=== PATIENT | male | born 1990 | race Caucasian/White ===

== ENCOUNTER 2018-01-14 23:05 | Inpatient (IN) | payer SELFPAY ==
[~2018-01-14] VITALS: Ht 175.3 cm; Wt 99.0 kg
[2018-01-14 23:27] VITALS: BP 121/72; PULSE 117; RESP 18; TEMP 101.7; O2SAT 97
[2018-01-14] MEDS ORDERED: KETOROLAC TROMETHAMINE 30 MG/ML (IVP) VIAL IV PUSH ONE (23:45)
[2018-01-14] MEDS ORDERED: ACETAMINOPHEN 325 MG TAB PO ONE (23:45)
[2018-01-14] MEDS ORDERED: SODIUM CHLOR 0.9% 1000 ML INJ 1,000 ML IV ONE ×2 (23:45)
[2018-01-14] MEDS ORDERED: ONDANSETRON ODT 4 MG TAB PO ONE (23:45)
--- NOTE | 2018-01-14 23:48 | PD ---
HPI Chief Complaint: GI Complaint Time Seen by Provider: 23:34 Travel History International Travel<30 days: No Contact w/Intl Traveler<30days: No Traveled to known affect area: No History of Present Illness HPI The patient is a 27-year-old male who presents to the emergency department for a one-week of since one episode of diarrhea. He does complain of a dry nonproductive cough, generalized weakness, and some nondescript myalgias. He denies any sick contacts at home. The patient was seen in urgent care earlier [facility] where he was given Zofran, however, persisted to have nausea/vomiting and was referred to the emergency department. He denies any recent international travel. The patient does not have a local primary physician. He does note nausea, vomiting, one episode of diarrhea, but denies any specific abdominal pain. He denies any dysuria. He denies any posterior neck pain. He denies any ear pain or sore throat. Symptoms are moderate. PFSH Past Medical History Medical History: Denies Significant Hx Past Surgical History Narrative Surgical 1 wisdom tooth removed Social History Tobacco Use: No Allergies-Medications (Allergen,Severity, Reaction): Coded Allergies: No Known Allergies (Unverified , 01/14/18) Review of Systems Except as stated in HPI: all other systems reviewed are Neg General / Constitutional: Positive: Fever HENT: No: Sore Throat, Neck Stiffness, Neck Pain Cardiovascular: No: Chest Pain or Discomfort Respiratory: Positive: Cough, No: Shortness of Breath Gastrointestinal: Positive: Nausea, Vomiting, Diarrhea, Abdominal Pain ( Secondary to vomit) Genitourinary: No: Dysuria Musculoskeletal: Positive: Myalgias, Weakness Skin: No Rash Neurologic: Positive: Weakness Physical Exam Narrative GENERAL: Awake, alert, 27-year-old white male who appears his stated age and is in no acute respiratory distress. SKIN: Focused skin assessment warm/dry. HEAD: Atraumatic. Normocephalic. EYES: Pupils equal and round. No scleral icterus. No injection or drainage. ENT: No nasal bleeding or discharge. Dry mucous membranes. NECK: Trachea midline. No JVD. No meningeal signs. CARDIOVASCULAR: Regular, tachycardic with a heart rate of 115. RESPIRATORY: No accessory muscle use. Clear to auscultation. Breath sounds equal bilaterally. GASTROINTESTINAL: Abdomen soft, non-tender, nondistended. Negative Reyes's. Negative McBurney's. Back: No CVA tenderness. MUSCULOSKELETAL: No obvious deformities. No clubbing. No cyanosis. No edema. NEUROLOGICAL: Awake and alert. No obvious cranial nerve deficits. Motor grossly within normal limits. Normal speech. Nonfocal. PSYCHIATRIC: Appropriate mood and affect; insight and judgment normal. Data Data Last Documented VS Vital Signs Date Time Temp Pulse Resp B/P (MAP) Pulse Ox O2 Delivery O2 Flow Rate FiO2 01/15/18 01:48 99.0 94 18 132/75 (94) 98 Room Air Orders Orders Sepsis Workup Initiated (01/14/18 ) Complete Blood Count With Diff (01/14/18 23:40) Comprehensive Metabolic Panel (01/14/18 23:40) Lactic Acid Sepsis Protocol (01/14/18 23:40) Lipase (01/14/18 23:40) Urinalysis - C+S If Indicated (01/14/18 23:40) Influenzae A/B Antigen (01/14/18 23:40) Blood Culture (01/14/18 23:40) Chest, Single Ap (01/14/18 23:40) Blood Glucose (01/14/18 23:40) Ecg Monitoring (01/14/18 23:40) Iv Access Insert/Monitor (01/14/18 23:40) Oximetry (01/14/18 23:40) Oxygen Administration (01/14/18 23:40) Acetaminophen (Tylenol) (01/14/18 23:45) Sodium Chlor 0.9% 1000 Ml Inj (Ns 1000 M (01/14/18 23:45) Sodium Chlor 0.9% 1000 Ml Inj (Ns 1000 M (01/14/18 23:45) Ondansetron Odt (Zofran Odt) (01/14/18 23:45) Ketorolac Inj (Toradol Inj) (01/14/18 23:45) Iohexol 350 Inj (Omnipaque 350 Inj) (01/15/18 01:08) Ct Abd/Pel W Iv Contrast(Rout) (01/15/18 00:01) Monoscreen (01/15/18 01:34) Hepatitis Profile (01/15/18 01:34) Admit Order (Ed Use Only) (01/15/18 01:51) Admit To Inpatient (01/15/18 ) Vital Signs (Adult) Q4H (01/15/18 01:51) Activity Oob With Assistance (01/15/18 01:51) Diet Regular Basic (01/15/18 Breakfast) Sodium Chlor 0.9% 1000 Ml Inj (Ns 1000 M (01/15/18 01:51) Sodium Chloride 0.9% Flush (Ns Flush) (01/15/18 02:00) Sodium Chloride 0.9% Flush (Ns Flush) (01/15/18 09:00) Ondansetron Inj (Zofran Inj) (01/15/18 02:00) Comprehensive Metabolic Panel (01/16/18 06:00) Complete Blood Count With Diff (01/16/18 06:00) Scd Bilateral/Knee High BETTIE.BID (01/15/18 01:51) Naloxone Inj (Narcan Inj) (01/15/18 02:00) Magnesium Hydroxide Liq (Milk Of Magnesi (01/15/18 02:00) Sennosides (Senokot) (01/15/18 02:00) Bisacodyl Supp (Dulcolax Supp) (01/15/18 02:00) Lactulose Liq (Lactulose Liq) (01/15/18 02:00) Inpatient Certification (01/15/18 ) Labs Laboratory Tests Test 01/15/18 00:05 01/15/18 01:23 01/15/18 01:45 White Blood Count 5.1 TH/MM3 Red Blood Count 4.87 MIL/MM3 Hemoglobin 14.4 GM/DL Hematocrit 41.6 % Mean Corpuscular Volume 85.3 FL Mean Corpuscular Hemoglobin 29.5 PG Mean Corpuscular Hemoglobin Concent 34.5 % Red Cell Distribution Width 12.4 % Platelet Count 106 TH/MM3 Mean Platelet Volume 9.4 FL CBC Comment AUTO DIFF Differential Total Cells Counted 100 Neutrophils % (Manual) 59 % Band Neutrophils % 19 % Lymphocytes % 20 % Monocytes % 2 % Neutrophils # (Manual) 4.0 TH/MM3 Differential Comment FINAL DIFF MANUAL Platelet Estimate LOW Platelet Morphology Comment NORMAL Red Cell Morphology Comment NORMAL Blood Urea Nitrogen 11 MG/DL Creatinine 1.00 MG/DL Random Glucose 107 MG/DL Total Protein 7.0 GM/DL Albumin 3.3 GM/DL Calcium Level 8.7 MG/DL Alkaline Phosphatase 111 U/L Aspartate Amino Transf (AST/SGOT) 396 U/L Alanine Aminotransferase (ALT/SGPT) 429 U/L Total Bilirubin 1.6 MG/DL Sodium Level 136 MEQ/L Potassium Level 3.5 MEQ/L Chloride Level 101 MEQ/L Carbon Dioxide Level 26.5 MEQ/L Anion Gap 9 MEQ/L Estimat Glomerular Filtration Rate 91 ML/MIN Lactic Acid Level 1.5 mmol/L Lipase 203 U/L Urine Color YELLOW Urine Turbidity CLEAR Urine pH 6.0 Urine Specific [place] LESS/EQUAL 1.005 Urine Protein NEG mg/dL Urine Glucose (UA) NEG mg/dL Urine Ketones 15 mg/dL Urine Occult Blood NEG Urine Nitrite NEG Urine Bilirubin NEG Urine Urobilinogen 2.0 MG/DL Urine Leukocyte Esterase NEG Urine RBC 0-2 /hpf Urine WBC 0-2 /hpf Urine Squamous Epithelial Cells 0-5 /hpf Urine Bacteria NONE /hpf Microscopic Urinalysis Comment CULT NOT INDICATED MDM Medical Decision Making Medical Screen Exam Complete: Yes Emergency Medical Condition: Yes Medical Record Reviewed: Yes Interpretation(s) Date/Time Source Procedure Growth Status 01/15/18 00:00 Blood Peripheral Aerobic Blood Culture Pending Received 01/15/18 00:00 Blood Peripheral Anaerobic Blood Culture Pending Received 01/15/18 00:00 Blood Peripheral Aerobic Blood Culture Pending Received 01/15/18 00:00 Blood Peripheral Anaerobic Blood Culture Pending Received 01/15/18 00:05 Nasal Aspirate Influenza Types A,B Antigen (CHIVO) - Final NEGATIVE FOR FLU A AND B ANTIGEN.... Complete Laboratory Tests Test 01/15/18 00:05 01/15/18 01:23 White Blood Count 5.1 TH/MM3 Red Blood Count 4.87 MIL/MM3 Hemoglobin 14.4 GM/DL Hematocrit 41.6 % Mean Corpuscular Volume 85.3 FL Mean Corpuscular Hemoglobin 29.5 PG Mean Corpuscular Hemoglobin Concent 34.5 % Red Cell Distribution Width 12.4 % Platelet Count 106 TH/MM3 Mean Platelet Volume 9.4 FL CBC Comment AUTO DIFF Differential Total Cells Counted 100 Neutrophils % (Manual) 59 % Band Neutrophils % 19 % Lymphocytes % 20 % Monocytes % 2 % Neutrophils # (Manual) 4.0 TH/MM3 Differential Comment FINAL DIFF MANUAL Platelet Estimate LOW Platelet Morphology Comment NORMAL Red Cell Morphology Comment NORMAL Blood Urea Nitrogen 11 MG/DL Creatinine 1.00 MG/DL Random Glucose 107 MG/DL Total Protein 7.0 GM/DL Albumin 3.3 GM/DL Calcium Level 8.7 MG/DL Alkaline Phosphatase 111 U/L Aspartate Amino Transf (AST/SGOT) 396 U/L Alanine Aminotransferase (ALT/SGPT) 429 U/L Total Bilirubin 1.6 MG/DL Sodium Level 136 MEQ/L Potassium Level 3.5 MEQ/L Chloride Level 101 MEQ/L Carbon Dioxide Level 26.5 MEQ/L Anion Gap 9 MEQ/L Estimat Glomerular Filtration Rate 91 ML/MIN Lactic Acid Level 1.5 mmol/L Lipase 203 U/L Urine Color YELLOW Urine Turbidity CLEAR Urine pH 6.0 Urine Specific [place] LESS/EQUAL 1.005 Urine Protein NEG mg/dL Urine Glucose (UA) NEG mg/dL Urine Ketones 15 mg/dL Urine Occult Blood NEG Urine Nitrite NEG Urine Bilirubin NEG Urine Urobilinogen 2.0 MG/DL Urine Leukocyte Esterase NEG Urine RBC 0-2 /hpf Urine WBC 0-2 /hpf Urine Squamous Epithelial Cells 0-5 /hpf Urine Bacteria NONE /hpf Microscopic Urinalysis Comment CULT NOT INDICATED CT of the abdomen and pelvis reveals unremarkable bowel gas pattern and normal appendix. Moderate hepatic steatosis. Last Impressions Chest X-Ray 01/14/18 2340 Signed Impressions: Service Date/Time: Sunday, January 14, 2018 23:43 - CONCLUSION: No acute disease. There is no evidence of pneumonia. Fredrick Hunt MD Differential Diagnosis Differential diagnosis includes influenza, viral syndrome, pneumonia, pyelonephritis, atypical appendicitis, atypical cholecystitis, gastroenteritis, enteritis, colitis. Narrative Course IV was established, labs are drawn and sent, and the patient was placed on cardiac telemetry monitoring and continuous pulse oximetry monitoring. The patient was administered Tylenol, Toradol, Zofran, and 2 L of IV fluids. UA was sent to lab. Influenza screen was sent to lab. Chest x-ray was obtained. CT of the abdomen and pelvis with IV contrast was ordered. Chest x-ray was negative, no evidence of pneumonia. CT of the abdomen and pelvis reveals unremarkable bowel gas pattern and normal appendix, moderate hepatic steatosis. White count is unremarkable, however, the patient does have bandemia 19%. The patient's LFTs are elevated in the 300s and 400s with mildly elevated bilirubin, possibly could be secondary to viral hepatitis. Therefore, mono screen and hepatitis profile were sent to lab. As the patient does have bandemia, tachycardia, and elevated LFTs, he will be admitted to the hospital for further evaluation and observation. The on-call medical service was paged for admission. Sepsis Criteria SIRS Criteria (2 or more): Temp > 100.9 or < 96.8, Heart rate over 90, WBC > 46545, < 4000 or > 10% bands Criteria Outcome: Meets SIRS criteria Physician Communication Physician Communication The on-call medical service was paged for admission. I discussed the patient with Dr. Crook who agrees with admission. Diagnosis Primary Impression: SIRS (systemic inflammatory response syndrome) Additional Impressions: Hepatitis Bandemia Condition: Stable Ferdinand Richter MD January 14, 2018 23:48
--- NOTE | 2018-01-15 00:02 | RADRPT ---
EXAM DATE/TIME: 01/14/2018 23:43 [facility] COMPARISON: No previous studies available for comparison. INDICATIONS : Fever, cough. MEDICAL HISTORY : None. SURGICAL HISTORY : None. ENCOUNTER: Initial ACUITY: 1 week PAIN SCORE: 0/10 LOCATION: Bilateral chest FINDINGS: A single view of the chest demonstrates the lungs to be symmetrically aerated without evidence of mas s, infiltrate or effusion. The cardiomediastinal contours are unremarkable. Osseous structures are intact. CONCLUSION: No acute disease. There is no evidence of pneumonia. Fredrick Hunt MD on January 15, 2018 at 0:00 Board Certified Radiologist. This report was verified electronically.
[2018-01-15 00:23] VITALS: O2SAT 98
[2018-01-15 00:23] LABS: HEMATOCRIT 41.6 % (39.0-51.0); HEMOGLOBIN 14.4 GM/DL (13.0-17.0); MEAN CELL VOLUME 85.3 FL (80.0-100.0); MEAN CORPUSCULAR HEMOGLOBIN 29.5 PG (27.0-34.0); MEAN CORPUSCULAR HGB CONC 34.5 % (32.0-36.0); MEAN PLATELET VOLUME 9.4 FL (7.0-11.0); PLATELET COUNT 106 TH/MM3 (150-450); RED BLOOD COUNT 4.87 MIL/MM3 (4.50-5.90); RED CELL DISTRIBUTION WIDTH 12.4 % (11.6-17.2); WHITE BLOOD COUNT 5.1 TH/MM3 (4.0-11.0)
[2018-01-15 00:34] LABS: CHLORIDE 101 MEQ/L (98-107); SODIUM (NA) 136 MEQ/L (136-145)
[2018-01-15 00:38] LABS: ALBUMIN 3.3 GM/DL (3.4-5.0); BICARBONATE 26.5 MEQ/L (21.0-32.0); CALCIUM 8.7 MG/DL (8.5-10.1); GLUCOSE,RANDOM 107 MG/DL (74-106)
[2018-01-15 00:39] LABS: BLOOD UREA NITROGEN 11 MG/DL (7-18)
[2018-01-15 00:41] LABS: ALT (GPT) 429 U/L (12-78); AST (GOT) 396 U/L (15-37); BANDS 19 % (0-6); GLOMERULAR FILTRATION RATE 91 ML/MIN (>89); LYMPHOCYTES 20 % (9-44); MONOCYTES 2 % (0-8); POLYS (SEG NEUTROPHILS) 59 % (16-70)
[2018-01-15 00:43] LABS: TOTAL BILIRUBIN ADULT 1.6 MG/DL (0.2-1.0)
[2018-01-15 00:44] LABS: ALKALINE PHOSPHATASE 111 U/L (45-117)
[2018-01-15] MEDS ORDERED: IOHEXOL 350 MG/ML 10 ML VIAL (for RAD DIAG) IVCONTRAST ONE (01:08)
[2018-01-15 01:30] LABS: BILIRUBIN, URINE NEG (NEG); BLOOD, URINE NEG (NEG); GLUCOSE,URINE NEG (NEG); KETONE, URINE 15 mg/dL (NEG); NITRITE,URINE NEG (NEG); URINE COLOR YELLOW (YELLW/STRAW); URINE LEUKOCYTE ESTERASE NEG (NEG)
[2018-01-15 01:34] LABS: RBC, URINE 0-2 /hpf (0-3); SQUAMOUS EPITHELIAL CELL URINE 0-5 /hpf (0-5); WBC, URINE 0-2 /hpf (0-5)
--- NOTE | 2018-01-15 01:34 | RADRPT ---
EXAM DATE/TIME: 01/15/2018 00:44 [facility] COMPARISON: CHEST SINGLE AP, January 14, 2018, 23:43. INDICATIONS : Bilateral lower quadrant pain. Nausea. Vomiting. IV CONTRAST: 100 cc Omnipaque 350 (iohexol) IV ORAL CONTRAST: No oral contrast ingested. RADIATION DOSE: 18.14 CTDIvol (mGy) MEDICAL HISTORY : None SURGICAL HISTORY : None. ENCOUNTER: Initial ACUITY: 4 - 6 days PAIN SCALE: 5/10 LOCATION: Bilateral lower quadrant TECHNIQUE: Volumetric scanning of the abdomen and pelvis was performed. Using automated exposure control and ad justment of the mA and/or kV according to patient size, radiation dose was kept as low as reasonably achievable to obtain optimal diagnostic quality images. DICOM format image data is available electro nically for review and comparison. FINDINGS: LOWER LUNGS: The visualized lower lungs are clear. LIVER: Homogeneous density without lesion. There is no dilation of the biliary tree. No calcified gallston es. There is diffuse moderate hepatic steatosis. The gallbladder is unremarkable in appearance. SPLEEN: Normal size without lesion. PANCREAS: Within normal limits. KIDNEYS: Normal in size and shape. There is no mass, stone or hydronephrosis. ADRENAL GLANDS: Within normal limits. VASCULAR: There is no aortic aneurysm. BOWEL/MESENTERY: No oral contrast was given limiting sensitivity. The stomach, small bowel, and colon demonstrate no a cute abnormality. There is a normal appendix. There is no free intraperitoneal air or fluid. ABDOMINAL WALL: Within normal limits. RETROPERITONEUM: There is no lymphadenopathy. BLADDER: No wall thickening or mass. REPRODUCTIVE: Within normal limits. INGUINAL: There is no lymphadenopathy or hernia. MUSCULOSKELETAL: Within normal limits for patient age. CONCLUSION: 1. Unremarkable bowel gas pattern and normal appendix. 2. Moderate hepatic steatosis. Fredrick Hunt MD on January 15, 2018 at 1:30 Board Certified Radiologist. This report was verified electronically.
[2018-01-15 01:48] VITALS: BP 132/75; PULSE 94; RESP 18; TEMP 99; O2SAT 98
[2018-01-15] MEDS: SODIUM CHLOR 0.9% 1000 ML INJ 1,000 ML IV SCH ×2 (01:51→11:51)
[2018-01-15] MEDS ORDERED: NALOXONE HCL 0.4 MG/ML AMP IV PUSH PRN (02:00)
[2018-01-15] MEDS ORDERED: ONDANSETRON ODT 4 MG TAB PO PRN (02:00)
[2018-01-15] MEDS ORDERED: SODIUM CHLORIDE 0.9% FLUSH 10 ML FLUSH IV FLUSH PRN (02:00)
[2018-01-15] MEDS ORDERED: LACTULOSE SYRUP 20 GM/30 ML CUP PO PRN (02:00)
[2018-01-15] MEDS ORDERED: MAGNESIUM HYDROXIDE SUSP 30 ML CUP PO PRN (02:00)
[2018-01-15] MEDS ORDERED: SENNOSIDES 8.6 MG TAB PO PRN (02:00)
[2018-01-15] MEDS ORDERED: BISACODYL 10 MG SUPP RECTAL PRN (02:00)
[2018-01-15 02:15] VITALS: BP 126/58; TEMP 98.9
[2018-01-15] MEDS ORDERED: PROCHLORPERAZINE INJ 10 MG/2 ML VIAL IV PUSH ONE (02:15)
[2018-01-15 02:45] VITALS: BP 114/59; PULSE 91; RESP 20; TEMP 99.4; O2SAT 95
[2018-01-15] MEDS ORDERED: PROMETHAZINE INJ 25 MG/ML VIAL IM ONE (07:00)
[2018-01-15 08:00] VITALS: BP 133/73; PULSE 90; RESP 21; TEMP 98.2; O2SAT 98
[2018-01-15] MEDS ORDERED: SODIUM CHLORIDE 0.9% FLUSH 10 ML FLUSH IV FLUSH SCH (09:00)
--- NOTE | 2018-01-15 09:01 | HHI.HP ---
[facility] Service [facility] Primary Care Physician No Primary Care Physician Admission Diagnosis SIRS, hepatitis, bandemia, febrile illness Diagnoses: (1) Sepsis Diagnosis: Principal (2) Hepatitis Diagnosis: Principal (3) Bandemia Diagnosis: Principal Chief Complaint: Nausea, vomiting Travel History International Travel<30 Days: No Contact w/Intl Traveler <30 Da: No Traveled to Known Affected Are: No Sepsis Criteria SIRS Criteria (2 or more): Temp > 100.9 or < 96.8, Heart rate over 90, WBC > 13499, < 4000 or > 10% bands Sepsis Criteria (SIRS+source): Infect source susp/known History of Present Illness 27-year-old male with no chronic medical illnesses who presented the hospital at the request of urgent care because of intractable nausea vomiting. Patient states that for at least one week now he has been experiencing nausea and vomiting and one episode of diarrhea. Patient denies any abdominal pain, hematemesis, hematochezia, melena. Patient indicates that he is not ate any type of seafood, shellfish, uncooked chicken, pork, beef. He does not know of any type of food or condition that preempted his symptoms. Patient works in IT , patient did go to an urgent care center yesterday and because he had intractable nausea and vomiting he was notified to go to the emergency department for evaluation. Patient had workup done which did find elevated liver enzymes, elevated bilirubin, patient was febrile when he presented the hospital. Patient denies any history of hepatitis, denies any alcohol abuse, IV drug use, he is only sexually active with his . At the time of seeing the patient he denies any abdominal pain. He has not had any recurrent nausea and vomiting since being hospitalized. He is doing well and asking when he can go home. Review of Systems Gastrointestinal: COMPLAINS OF: Diarrhea, Nausea, Vomiting Except as stated in HPI: all other systems reviewed are Neg Past Family Social History Past Medical History No chronic medical illnesses Past Surgical History [place] tooth extraction Reported Medications No home medications Allergies: Coded Allergies: No Known Allergies (Unverified , 01/14/18) Family History Family history reviewed and significant for diabetes Social History Patient denies any tobacco or illicit drugs. He states that he drinks alcohol approximately once a week. And he only drinks 1 beer at that time. Physical Exam Vital Signs Vital Signs Date Time Temp Pulse Resp B/P (MAP) Pulse Ox O2 Delivery O2 Flow Rate FiO2 01/15/18 08:00 98.2 90 21 133/73 (93) 98 01/15/18 02:45 99.4 91 20 114/59 (77) 95 01/15/18 02:15 98.9 92 16 126/58 (80) 100 01/15/18 01:48 99.0 94 18 132/75 (94) 98 Room Air 01/15/18 00:23 98 Room Air 01/15/18 00:23 98 Room Air 01/14/18 23:27 101.7 117 18 121/72 (88) 97 Physical Exam GENERAL: Well-developed, well-nourished, in no acute distress. alert and orientated HEENT: Head is normocephalic without any lesions or masses noted. Facial features are symmetric. Eyes: Pupils equal round reactive to light. Extraocular muscles are intact. Conjunctivae were clear. Oropharyngeal: Pharynx without any erythema edema. Tongue is midline without deviation. Buccal mucosa is moist without any masses or lesions NECK: Supple without any masses. Trachea midline no deviation. No JVD, no bruits are appreciated CARDIAC: Regular rhythm, regular rate. S1/S2 are heard. No murmurs gallops or rubs. LUNGS: Clear to auscultation bilaterally. No wheeze, rhonchi or rales. No use of accessory muscles on inspiration or expiration. ABDOMEN: Soft, nontender. Nondistended. Bowel sounds heard in all 4 quadrants. No organomegaly or masses. Negative rebound, negative guarding EXTREMITIES: No edema, pulses are equal bilaterally. No cyanosis or clubbing NEUROLOGY: Mood and affect appear appropriate. Cranial nerves II through XII grossly intact. Muscle strength 5/5 in upper and lower extremities bilaterally. Deep tendon reflexes are 2+ in upper and lower extremities bilaterally. Laboratory Laboratory Tests Test 01/15/18 00:05 01/15/18 01:23 01/15/18 01:45 01/15/18 01:53 White Blood Count 5.1 Red Blood Count 4.87 Hemoglobin 14.4 Hematocrit 41.6 Mean Corpuscular Volume 85.3 Mean Corpuscular Hemoglobin 29.5 Mean Corpuscular Hemoglobin Concent 34.5 Red Cell Distribution Width 12.4 Platelet Count 106 Mean Platelet Volume 9.4 CBC Comment AUTO DIFF Differential Total Cells Counted 100 Neutrophils % (Manual) 59 Band Neutrophils % 19 Lymphocytes % 20 Monocytes % 2 Neutrophils # (Manual) 4.0 Differential Comment FINAL DIFF MANUAL Platelet Estimate LOW Platelet Morphology Comment NORMAL Red Cell Morphology Comment NORMAL Blood Urea Nitrogen 11 Creatinine 1.00 Random Glucose 107 Total Protein 7.0 Albumin 3.3 Calcium Level 8.7 Alkaline Phosphatase 111 Aspartate Amino Transf (AST/SGOT) 396 Alanine Aminotransferase (ALT/SGPT) 429 Total Bilirubin 1.6 Sodium Level 136 Potassium Level 3.5 Chloride Level 101 Carbon Dioxide Level 26.5 Anion Gap 9 Estimat Glomerular Filtration Rate 91 Lactic Acid Level 1.5 Lipase 203 Ethyl Alcohol Level LESS THAN 3 Urine Color YELLOW Urine Turbidity CLEAR Urine pH 6.0 Urine Specific [place] LESS/EQUAL 1.005 Urine Protein NEG Urine Glucose (UA) NEG Urine Ketones 15 Urine Occult Blood NEG Urine Nitrite NEG Urine Bilirubin NEG Urine Urobilinogen 2.0 Urine Leukocyte Esterase NEG Urine RBC 0-2 Urine WBC 0-2 Urine Squamous Epithelial Cells 0-5 Urine Bacteria NONE Microscopic Urinalysis Comment CULT NOT INDICATED Date/Time Source Procedure Growth Status 01/15/18 00:00 Blood Peripheral Aerobic Blood Culture Pending Received 01/15/18 00:00 Blood Peripheral Anaerobic Blood Culture Pending Received 01/15/18 00:05 Nasal Aspirate Influenza Types A,B Antigen (CHIVO) - Final NEGATIVE FOR FLU A AND B ANTIGEN.... Complete Result Diagram: 01/15/18 0005 01/15/18 0005 Imaging Last Impressions Abdomen/Pelvis CT 01/15/18 0001 Signed Impressions: Service Date/Time: Monday, January 15, 2018 00:44 - CONCLUSION: 1. Unremarkable bowel gas pattern and normal appendix. 2. Moderate hepatic steatosis. Fredrick Hunt MD Chest X-Ray 01/14/18 7840 Signed Impressions: Service Date/Time: Sunday, January 14, 2018 23:43 - CONCLUSION: No acute disease. There is no evidence of pneumonia. Fredrick Hunt MD Septic Shock Reassessment Septic shock perfusion: reassessment completed Caprini VTE Risk Assessment Caprini VTE Risk Assessment: No/Low Risk (score <= 1) Caprini Risk Assessment Model Point Value = 1 Point Value = 2 Point Value = 3 Point Value = 5 Age 41-60 Minor surgery BMI > 25 kg/m2 Swollen legs Varicose veins or History of unexplained or recurrent spontaneous Oral contraceptives or hormone replacement Sepsis (< 1 month) Serious lung disease, including pneumonia (< 1 month) Abnormal pulmonary function Acute myocardial infarction Congestive heart failure (< 1 month) History of inflammatory bowel disease Medical patient at bed rest Age 61-74 Arthroscopic surgery Major open surgery (> 45 min) Laparoscopic surgery (> 45 min) Malignancy Confined to bed (> 72 hours) Immobilizing plaster cast Central venous access Age >= 75 History of VTE Family history of VTE Factor V Leiden Prothrombin [id number] Lupus anticoagulant Anticardiolipin antibodies Elevated serum homocysteine Heparin-induced thrombocytopenia Other congenital or acquired thrombophilia Stroke (< 1 month) Elective arthroplasty Hip, pelvis, or leg fracture Acute spinal cord injury (< 1 month) Prophylaxis Regimen Total Risk Factor Score Risk Level Prophylaxis Regimen 0-1 Low Early ambulation 2 Moderate Order ONE of the following: *Sequential Compression Device (SCD) *Heparin 5000 units SQ BID 3-4 Higher Order ONE of the following medications: *Heparin 5000 units SQ TID *Enoxaparin/Lovenox 40 mg SQ daily (WT < 150 kg, CrCl > 30 mL/min) *Enoxaparin/Lovenox 30 mg SQ daily (WT < 150 kg, CrCl > 10-29 mL/min) *Enoxaparin/Lovenox 30 mg SQ BID (WT < 150 kg, CrCl > 30 mL/min) AND/OR *Sequential Compression Device (SCD) 5 or more Highest Order ONE of the following medications: *Heparin 5000 units SQ TID (Preferred with Epidurals) *Enoxaparin/Lovenox 40 mg SQ daily (WT < 150 kg, CrCl > 30 mL/min) *Enoxaparin/Lovenox 30 mg SQ daily (WT < 150 kg, CrCl > 10-29 mL/min) *Enoxaparin/Lovenox 30 mg SQ BID (WT < 150 kg, CrCl > 30 mL/min) AND *Sequential Compression Device (SCD) Assessment and Plan Assessment and Plan Sepsis -Patient presented with febrile illness, tachycardia, bandemia, signs of hepatitis -Influenza testing was negative, blood cultures are pending -Laboratory studies indicating hepatitis with CT scan showing moderate hepatic steatosis Hepatitis, secondary to mononucleosis -CT scan results as above -Continue to trend liver enzymes -Viral hepatitis panel was negative -Mononucleosis testing was positive -Continue IV fluids -Zofran as needed for nausea vomiting Thrombocytopenia -Likely secondary to hepatitis from mononucleosis -Monitor platelet count Bandemia -Continue monitor CBC DVT prevention -Low risk, early ambulation -Sequential compression devices Physician Certification 2 Midnight Certification Type: Admission for Inpatient Services Order for Inpatient Services The services are ordered in accordance with Medicare regulations or non- Medicare payer requirements, as applicable. In the case of services not specified as inpatient-only, they are appropriately provided as inpatient services in accordance with the 2-midnight benchmark. Estimated LOS (days): 2 days is the estimated time the patient will need to remain in the hospital, assuming treatment plan goals are met and no additional complications. Post-Hospital Plan: Not yet determined Jacques Biswas January 15, 2018 09:01
[2018-01-15 12:00] VITALS: BP 126/66; PULSE 99; RESP 19; TEMP 102; O2SAT 98
[2018-01-15 12:34] LABS: MONOSCREEN POS (NEG)
[2018-01-15 12:36] LABS: ACETAMINOPHEN LESS THAN 2.0 MCG/ML (10.0-30.0)
[2018-01-15] MEDS ORDERED: IBUPROFEN 600 MG TAB PO PRN (12:45)
[2018-01-15 13:25] LABS: HEMATOCRIT 38.2 % (39.0-51.0); HEMOGLOBIN 13.2 GM/DL (13.0-17.0); MEAN CELL VOLUME 85.5 FL (80.0-100.0); MEAN CORPUSCULAR HEMOGLOBIN 29.5 PG (27.0-34.0); MEAN CORPUSCULAR HGB CONC 34.5 % (32.0-36.0); MEAN PLATELET VOLUME 9.2 FL (7.0-11.0); PLATELET COUNT 105 TH/MM3 (150-450); RED BLOOD COUNT 4.47 MIL/MM3 (4.50-5.90); RED CELL DISTRIBUTION WIDTH 12.8 % (11.6-17.2)
[2018-01-15 13:30] LABS: CHLORIDE 108 MEQ/L (98-107); SODIUM (NA) 139 MEQ/L (136-145)
[2018-01-15 13:35] LABS: ALBUMIN 2.9 GM/DL (3.4-5.0); BICARBONATE 23.9 MEQ/L (21.0-32.0); BLOOD UREA NITROGEN 8 MG/DL (7-18); GLUCOSE,RANDOM 89 MG/DL (74-106)
[2018-01-15 13:38] LABS: ALT (GPT) 440 U/L (12-78); AST (GOT) 361 U/L (15-37); CREATININE 0.75 MG/DL (0.60-1.30); GLOMERULAR FILTRATION RATE 127 ML/MIN (>89)
[2018-01-15 13:39] LABS: TOTAL BILIRUBIN ADULT 1.1 MG/DL (0.2-1.0); TOTAL PROTEIN 6.2 GM/DL (6.4-8.2)
[2018-01-15 13:41] LABS: ALKALINE PHOSPHATASE 89 U/L (45-117)
[2018-01-15 14:30] LABS: ATYPICAL LYMPHOCYTES 16 % (0-0); BANDS 12 % (0-6); LYMPHOCYTES 37 % (9-44); MONOCYTES 9 % (0-8); NEUTROPHIL # MANUAL DIFF 1.9 TH/MM3 (1.8-7.7); POLYS (SEG NEUTROPHILS) 25 % (16-70)
== END 2018-01-15 15:55 | disposition left against medical advice (07) | DRG 872 ==
LOC: PHED 23:05 → PHEDA 01-15 01:53 → PH3A 01-15 02:21
PROVIDERS: ADMIT Hospitalist; ATTEND Hospitalist
DX: A41.9 Sepsis, unspecified organism (principal); D69.6 Thrombocytopenia, unspecified; K76.0 Fatty (change of) liver, not elsewhere classified; B27.90 Infectious mononucleosis, unspecified without complication; K75.9 Inflammatory liver disease, unspecified; Z83.3 Family history of diabetes mellitus
CPT/HCPCS: 71045; 74177; 80053; 80074; 80307; 81001; 83605; 83690; 85007; 85027; 86308; 87040; 87804; J0780; J1885; J2550; J7030; Q9967